=== PATIENT | female | born 1985 | race Caucasian/White ===

== ENCOUNTER 2017-01-14 00:19 | Emergency (ER) | payer MEDICAID ==
[~2017-01-14] VITALS: Ht 152.4 cm; Wt 55.0 kg
[2017-01-14 00:32] VITALS: BP 114/76; PULSE 102; RESP 16; TEMP 98.3; O2SAT 96
[2017-01-14 02:22] LABS: BACTERIA, URINE OCC /hpf; BLOOD, URINE SMALL (NEG); COMMENT (UR) CULTURE INDICATED; CULTURE IF INDICATED CULTURE INDICATED; GLUCOSE,URINE NEG (NEG); KETONE, URINE NEG (NEG); MUCUS URINE FEW /lpf (OCC); NITRITE,URINE POS (NEG); PH, URINE 5.5 (5.0-8.5); SQUAMOUS EPITHELIAL CELL URINE 1 /hpf (0-5); URINE COLOR BROWN (YELLW/STRAW)
--- NOTE | 2017-01-14 02:45 | PD ---
HPI Chief Complaint: Flank/Kidney Pain Time Seen by Provider: 02:27 Travel History International Travel<30 days: No Contact w/Intl Traveler<30days: No Traveled to known affect area: No History of Present Illness HPI 32-year-old female complains of right flank pain and dysuria. Patient states that the symptoms started 2-1/2 days ago. Patient denies any fever chills. Patient states the pain in cramping pain and sharp pain localized to the right flank area. Patient denies any pain radiation. Patient denies any vaginal discharge or bleeding. Patient denies any nausea vomiting diarrhea. Patient complains of dysuria. Patient has history kidney stone and recurrent UTI and pyelonephritis in the past. On a scale of 1-10 the pain is a 7. Patient has IUD in place. PFSH Past Medical History Medical History: Denies Significant Hx Tetanus Vaccination: < 5 Years Influenza Vaccination: No ?: Not LMP: IRREG : 2 Para: 2 Past Surgical History Appendectomy: Yes Social History Alcohol Use: Yes (2 XS WEEKLY) Tobacco Use: No Substance Use: No Allergies-Medications (Allergen,Severity, Reaction): Coded Allergies: No Known Allergies (Unverified , 01/14/17) Reported Meds & Prescriptions Reported Meds & Active Scripts Active No Active Prescriptions or Reported Medications Review of Systems General / Constitutional: No: Fever Eyes: No: Visual changes HENT: No: Headaches Cardiovascular: No: Chest Pain or Discomfort Respiratory: No: Shortness of Breath Gastrointestinal: No: Abdominal Pain Genitourinary: Positive: Dysuria Musculoskeletal: No: Pain Skin: No Rash Neurologic: No: Weakness Psychiatric: No: Depression Endocrine: No: Polydipsia Hematologic/Lymphatic: No: Easy Bruising Physical Exam Narrative GENERAL: Well-nourished, well-developed patient. SKIN: Warm and dry. HEAD: Normocephalic. EYES: No scleral icterus. No injection or drainage. NECK: Supple, trachea midline. No JVD or lymphadenopathy. CARDIOVASCULAR: Regular rate and rhythm without murmurs, gallops, or rubs. RESPIRATORY: Breath sounds equal bilaterally. No accessory muscle use. GASTROINTESTINAL: Abdomen soft, non-tender, nondistended. MUSCULOSKELETAL: No cyanosis, or edema. BACK: Patient had positive right CVA tenderness. Neurologic exam normal. Data Data Last Documented VS Vital Signs Date Time Temp Pulse Resp B/P Pulse Ox O2 Delivery O2 Flow Rate FiO2 01/14/17 00:32 98.3 102 16 114/76 96 Room Air Orders Urinalysis - C+S If Indicated (01/14/17 00:34) Ed Urine Pregnancytest Poc (01/14/17 00:34) Urine Culture (01/14/17 02:03) Ct Abd/Pel W/O Iv Contrast (01/14/17 02:32) Labs Laboratory Tests Test 01/14/17 02:03 Urine Color BROWN Urine Turbidity CLEAR Urine pH 5.5 Urine Specific [place] 1.005 Urine Protein NEG mg/dL Urine Glucose (UA) NEG mg/dL Urine Ketones NEG mg/dL Urine Occult Blood SMALL Urine Nitrite POS Urine Bilirubin NEG Urine Urobilinogen LESS THAN 2.0 MG/DL Urine Leukocyte Esterase LARGE Urine RBC 3 /hpf Urine WBC 49 /hpf Urine WBC Clumps RARE Urine Squamous Epithelial 1 /hpf Cells Urine Bacteria OCC /hpf Urine Mucus FEW /lpf Microscopic Urinalysis Comment CULTURE INDICATED MDM Medical Decision Making Medical Screen Exam Complete: Yes Emergency Medical Condition: Yes Interpretation(s) 2 45 AM. Urine test negative. UA positive with WBC and bacteria. 3:13 AM. Last Impressions Abdomen/Pelvis CT 01/14/17 0232 Signed Impressions: Service Date/Time: Saturday, January 14, 2017 02:42 - CONCLUSION: 1. 4 mm distal right ureteral stone 3 cm from the UVJ with mild obstruction. Johann Lee Jr., MD Differential Diagnosis Differential diagnosis including pyelonephritis, nephrolithiasis, UTI. Narrative Course 32-year-old female with right flank pain and dysuria. History of kidney stone and UTI and pyelonephritis. Diagnosis Primary Impression: Nephrolithiasis Additional Impression: UTI (urinary tract infection) Qualified Code: N30.00 - Acute cystitis without hematuria Patient Instructions: General Instructions Additional Instructions: Take medications as directed. Follow-up with urologist. Return if intractable pain, fever, persistent vomiting. Med/Other Pt SpecificInfo: Prescription(s) given Scripts Hydrocodone-Acetaminophen ([place])5-325 mg Tab1 Tab PO Q6H PRN (PAIN) #20 TAB Ref 0 Prov:Bacilio Alaniz MD 01/14/17 Ondansetron Odt (Zofran Odt)4 Mg Tab4 Mg SL Q6HR PRN (Nausea/Vomiting) #10 TAB Ref 0 Prov:Bacilio Alaniz MD 01/14/17 Tamsulosin (Flomax)0.4 Mg Cap0.4 Mg PO HS #10 CAP Ref 0 Prov:Bacilio Alaniz MD 01/14/17 Sulfamethoxazole-Trimethoprim (Bactrim DS)800-160 Mg Tab1 Tab PO BID #14 TAB Prov:Bacilio Alaniz MD 01/14/17 Disposition: 01 DISCHARGE HOME Condition: Stable Bacilio Alaniz MD Jan 14, 2017 02:44
--- NOTE | 2017-01-14 03:00 | RADRPT ---
EXAM DATE/TIME: 01/14/2017 02:42 [facility] COMPARISON: No previous studies available for comparison. INDICATIONS : Right flank pain for three days. ORAL CONTRAST: No oral contrast ingested. RADIATION DOSE: 4.97 CTDIvol (mGy) MEDICAL HISTORY : None SURGICAL HISTORY : Appendectomy. ENCOUNTER: Initial ACUITY: 1 day PAIN SCALE: 5/10 LOCATION: Right flank TECHNIQUE: Volumetric scanning of the abdomen and pelvis was performed. Using automated exposure control and ad justment of the mA and/or kV according to patient size, radiation dose was kept as low as reasonably achievable to obtain optimal diagnostic quality images. FINDINGS: LOWER LUNGS: The visualized lower lungs are clear. LIVER: Homogeneous density without lesion. There is no dilation of the biliary tree. No calcified gallston es. SPLEEN: Normal size without lesion. PANCREAS: Within normal limits. KIDNEYS: There is mild hydronephrosis and hydroureter on the right secondary to a 4 mm distal ureteral stone. The stone is 3 mm from the UVJ. 3 tiny nonobstructing stones are seen on the left. These measure appr oximately 1 mm respectively. A no perinephric stranding or fluid collections. ADRENAL GLANDS: Within normal limits. VASCULAR: There is no aortic aneurysm. BOWEL/MESENTERY: The stomach, small bowel, and colon demonstrate no acute abnormality. There is no free intraperitone al air or fluid. ABDOMINAL WALL: Within normal limits. RETROPERITONEUM: There is no lymphadenopathy. BLADDER: No wall thickening or mass. REPRODUCTIVE: Within normal limits. An IUD is observed. The uterus is anteverted. INGUINAL: There is no lymphadenopathy or hernia. MUSCULOSKELETAL: Within normal limits for patient age. CONCLUSION: 1. 4 mm distal right ureteral stone 3 cm from the UVJ with mild obstruction. Johann Lee Jr., MD on January 14, 2017 at 2:55 Board Certified Radiologist. This report was verified electronically.
[2017-01-14] MEDS ORDERED: NORC5TAB PO (03:20)
[2017-01-14] MEDS ORDERED: BACT800T5 PO (03:20)
[2017-01-14] MEDS ORDERED: ZOFR4TAB3 SL (03:20)
[2017-01-14] MEDS ORDERED: TAMS5CAP PO (03:20)
[2017-01-14] MEDS ORDERED: SULFAMETHOXAZOLE-TRIMETHOPRIM DS 800-160 MG TAB PO ONE (03:30)
[2017-01-14] MEDS ORDERED: KETOROLAC TROMETHAMINE 60 MG/2 ML (IM) VIAL IM ONE (03:30)
== END 2017-01-14 03:45 | disposition home or self-care (01) ==
LOC: NEPE 00:19
DX: N39.0 Urinary tract infection, site not specified (principal); N20.0 Calculus of kidney; Z87.442 Personal history of urinary calculi
CPT/HCPCS: 74176; 81001; 84703; 87086; 96372; 99284; J1885

== ENCOUNTER 2017-03-30 13:37 | Emergency (ER) | payer MEDICAID ==
[~2017-03-30] VITALS: Ht 152.4 cm; Wt 60.0 kg
[~2017-03-30 13:37] MED LIST: BACT800T5 PO; NORC5TAB PO; TAMS5CAP PO; ZOFR4TAB3 SL
[2017-03-30 13:41] VITALS: BP 111/66; PULSE 76; RESP 16; TEMP 98.3; O2SAT 99
[2017-03-30 14:02] LABS: BLOOD, URINE NEG (NEG); GLUCOSE,URINE NEG (NEG); KETONE, URINE NEG (NEG); NITRITE,URINE NEG (NEG)
[2017-03-30 14:06] LABS: METHOD OF COLLECTION CLEAN CATCH; URINE COLOR YELLOW (YELLW/STRAW)
[2017-03-30 14:10] LABS: COMMENT (UR) CULT NOT INDICATED; CULTURE IF INDICATED CULT NOT INDICATED; RBC, URINE 0-3 /hpf (0-3); WBC, URINE 0-2 /hpf (0-5)
[2017-03-30] MEDS ORDERED: METR-1 PO (14:34)
--- NOTE | 2017-03-30 14:34 | PD ---
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 She has a Mirena in place which has been present for 7 years. She was told to take it out after 5 years. She hasn't felt the string not too long ago. She has intermittent bleeding. She does not have periods. PFSH Past Medical History Medical History: Denies Significant Hx Hx Anticoagulant Therapy: No Diabetes: No Tetanus Vaccination: < 5 Years Influenza Vaccination: No ?: Not LMP: Spotting X's 4-5 days : 2 Para: 2 Dilation and Curettage (D&C): Yes Past Surgical History Appendectomy: Yes Social History Alcohol Use: Yes (Occ.) Tobacco Use: No Substance Use: Yes (Marijuana occ.) Allergies-Medications (Allergen,Severity, Reaction): Coded Allergies: No Known Allergies (Unverified , 03/30/17) Reported Meds & Prescriptions Reported Meds & Active Scripts Active No Active Prescriptions or Reported Medications Review of Systems General / Constitutional: No: Fever Cardiovascular: No: Chest Pain or Discomfort Respiratory: No: Cough, Shortness of Breath Genitourinary: Positive: Discharge, Vaginal Bleeding Musculoskeletal: No: Myalgias, Arthralgias Skin: No Rash Neurologic: No: Weakness Hematologic/Lymphatic: No: Easy Bruising Physical Exam Narrative GENERAL: Well-developed female SKIN: Focused skin assessment warm/dry. HEAD: Atraumatic. Normocephalic. EYES: Pupils equal and round. No scleral icterus. No injection or drainage. ENT: No nasal bleeding or discharge. Mucous membranes pink and moist. NECK: Trachea midline. No JVD. GASTROINTESTINAL: Abdomen soft, non-tender, nondistended. Hepatic and splenic margins not palpable. Pelvic: There is slight discharge. Initially the string could not be seen. The os was opened with splinter forceps and the string was found. The patient had requested that the Mirena be removed. I applied gentle traction to the string and the Mirena has come out intact MUSCULOSKELETAL: No obvious deformities. No clubbing. No cyanosis. No edema. NEUROLOGICAL: Awake and alert. No obvious cranial nerve deficits. Motor grossly within normal limits. Normal speech. PSYCHIATRIC: Appropriate mood and affect; insight and judgment normal. Data Data Last Documented VS Vital Signs Date Time Temp Pulse Resp B/P Pulse Ox O2 Delivery O2 Flow Rate FiO2 03/30/17 13:41 98.3 76 16 111/66 99 Orders Urinalysis - C+S If Indicated (03/30/17 13:51) Ed Urine Pregnancytest Poc (03/30/17 13:51) Gc And Chlamydia Pcr (03/30/17 14:07) Wet Prep Profile (03/30/17 14:07) Labs Laboratory Tests Test 03/30/17 03/30/17 14:00 14:10 Urine Collection Type CLEAN CATCH Urine Color YELLOW Urine Turbidity CLEAR Urine pH 8.0 Urine Specific [place] 1.012 Urine Protein NEG mg/dL Urine Glucose (UA) NEG mg/dL Urine Ketones NEG mg/dL Urine Occult Blood NEG Urine Nitrite NEG Urine Bilirubin NEG Urine Leukocyte Esterase NEG Urine RBC 0-3 /hpf Urine WBC 0-2 /hpf Microscopic Urinalysis Comment CULT NOT INDICATED Clue Cells (Wet Prep) PRESENT Vaginal Trichomonas (Wet Prep) NONE SEEN Vaginal Yeast (Wet Prep) NONE SEEN MDM Medical Decision Making Medical Screen Exam Complete: Yes Emergency Medical Condition: Yes Medical Record Reviewed: Yes Differential Diagnosis Differential includes cervicitis, vaginitis Narrative Course Urine is negative for infection. Wet prep shows clue cells. Diagnosis Primary Impression: Bacterial vaginosis Scripts Metronidazole (Flagyl)500 Mg Rad377 Mg PO TID 7 Days Ref 0 Prov:German Lawton MD 03/30/17 Disposition: 01 DISCHARGE HOME Condition: Stable German Lawton MD Mar 30, 2017 14:34
[2017-03-30 17:07] LABS: CHLAMYDIA PCR NOT DETECTED (NOT DETECT); NEISSERIA PCR NOT DETECTED (NOT DETECT)
== END 2017-03-30 14:45 | disposition home or self-care (01) ==
LOC: PHED 13:37
DX: N76.0 Acute vaginitis (principal); F12.90 Cannabis use, unspecified, uncomplicated
CPT/HCPCS: 81001; 84703; 87210; 87491; 87591; 99283

== ENCOUNTER 2017-04-03 06:00 | Inpatient (IN) | payer MEDICAID ==
[2017-04-03] VITALS (10 sets, daily range): BP systolic 97–112; BP diastolic 55–67; PULSE 67–113; RESP 15–18; TEMP 97.2–97.9; O2SAT 98–100
[~2017-04-03] VITALS: Ht 152.4 cm; Wt 57.0 kg
[~2017-04-03 06:00] MED LIST changes: -BACT800T5 PO; +METR-1 PO; -NORC5TAB PO; -TAMS5CAP PO; -ZOFR4TAB3 SL
[2017-04-03] MEDS ORDERED: antibiotic (06:22)
[2017-04-03] MEDS ORDERED: SODIUM CHLOR 0.9% 1000 ML INJ 1,000 ML IV SCH (06:26)
--- NOTE | 2017-04-03 06:27 | PD ---
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 Patient states that after her and her boyfriend had sex this morning she had fairly severe pain, she states the pain was so severe that it was doubling her over and she was feeling stars and very flushed. She states she's never had this pain before. She states recently she was being evaluated before bacterial vaginosis and was on Flagyl for that. Endorses mild nausea no vomiting no diarrhea no constipation. Has history of C- section in the past. PFSH Past Medical History Medical History: Denies Significant Hx Hx Anticoagulant Therapy: No Diabetes: No Diminished Hearing: No Tetanus Vaccination: Unknown Influenza Vaccination: No ?: Unknown : 2 Para: 2 Dilation and Curettage (D&C): Yes Past Surgical History Appendectomy: Yes Social History Alcohol Use: Yes (Occ.) Tobacco Use: No Substance Use: Yes (Marijuana occ.) Allergies-Medications (Allergen,Severity, Reaction): Coded Allergies: No Known Allergies (Unverified , 04/03/17) Reported Meds & Prescriptions Reported Meds & Active Scripts Active No Active Prescriptions or Reported Medications Review of Systems Except as stated in HPI: all other systems reviewed are Neg Physical Exam Narrative GENERAL: WD/WN appears very uncomfortable. SKIN: Warm and dry. HEAD: Atraumatic. Normocephalic. EYES: Pupils equal and round. No scleral icterus. No injection or drainage. ENT: No nasal bleeding or discharge. Mucous membranes pink and moist. NECK: Trachea midline. No JVD. CARDIOVASCULAR: Regular rate and rhythm. RESPIRATORY: No accessory muscle use. Clear to auscultation. Breath sounds equal bilaterally. GASTROINTESTINAL: Abdomen soft, moderately tender in the LLQ, nondistended. Hepatic and splenic margins not palpable. No rebound no percussive tenderness. : Normal cervix, no discharge. Tender with speculum insertion, tender on palpation of left adnexa. No bruising, no tears. MUSCULOSKELETAL: Extremities without clubbing, cyanosis, or edema. No obvious deformities. NEUROLOGICAL: Awake and alert. No obvious cranial nerve deficits. Motor grossly within normal limits. Five out of 5 muscle strength in the arms and legs. Normal speech. PSYCHIATRIC: Appropriate mood and affect; insight and judgment normal. Data Data Last Documented VS Vital Signs Date Time Temp Pulse Resp B/P Pulse Ox O2 Delivery O2 Flow Rate FiO2 04/03/17 07:20 97 18 108/55 99 Room Air 04/03/17 06:02 97.8 Orders Urinalysis - C+S If Indicated (04/03/17 06:07) Ed Urine Pregnancytest Poc (04/03/17 06:07) Complete Blood Count With Diff (04/03/17 06:26) Comprehensive Metabolic Panel (04/03/17:) Lipase (04/03/17:) Prothrombin Time / Inr (Pt) (04/03/17:) Act Partial Throm Time (Ptt) (04/03/17:26) Ct Abd/Pel W Iv Contrast(Rout) (04/03/17 06:26) Iv Access Insert/Monitor (04/03/17:) Ecg Monitoring (04/03/17:) Oximetry (04/03/17:26) Morphine Inj (Morphine Inj) (04/03/17 06:30) Ondansetron Inj (Zofran Inj) (04/03/17 06:30) Sodium Chlor 0.9% 1000 Ml Inj (Ns 1000 M (04/03/17 06:26) Sodium Chloride 0.9% Flush (Ns Flush) (04/03/17 06:30) Iohexol 350 Inj (Omnipaque 350 Inj) (04/03/17 07:50) Gc And Chlamydia Pcr (04/03/17 08:01) Wet Prep Profile (04/03/17 08:01) Piperacil-Tazo 4.5 Gm Premix (Zosyn 4.5 (04/03/17 08:30) Ceftriaxone Inj (Rocephin Inj) (04/03/17 08:30) Metronidazole 500 Mg Inj (Flagyl 500 Mg (04/03/17 08:30) Doxycycline (Vibramycin) (04/03/17 08:30) Sodium Chlor 0.9% 1000 Ml Inj (Ns 1000 M (04/03/17 08:30) Blood Culture (04/03/17 08:26) Lactic Acid (04/03/17 08:26) Us Pelvis Comp W Dop Transvag (04/03/17 ) Admit Order (Ed Use Only) (04/03/17 08:55) Labs Laboratory Tests Test 04/03/17 04/03/17 04/03/17 04/03/17 06:30 06:40 07:30 08:33 White Blood Count 18.7 TH/MM3 Red Blood Count 3.89 MIL/MM3 Hemoglobin 11.8 GM/DL Hematocrit 35.8 % Mean Corpuscular Volume 91.9 FL Mean Corpuscular Hemoglobin 30.2 PG Mean Corpuscular Hemoglobin 32.9 % Concent Red Cell Distribution Width 13.5 % Platelet Count 217 TH/MM3 Mean Platelet Volume 8.3 FL Neutrophils (%) (Auto) 82.4 % Lymphocytes (%) (Auto) 11.2 % Monocytes (%) (Auto) 5.1 % Eosinophils (%) (Auto) 1.1 % Basophils (%) (Auto) 0.2 % Neutrophils # (Auto) 15.4 TH/MM3 Lymphocytes # (Auto) 2.1 TH/MM3 Monocytes # (Auto) 1.0 TH/MM3 Eosinophils # (Auto) 0.2 TH/MM3 Basophils # (Auto) 0.0 TH/MM3 CBC Comment DIFF FINAL Differential Comment Prothrombin Time 10.7 SEC Prothromb Time International 1.0 RATIO Ratio Activated Partial 22.9 SEC Thromboplast Time Sodium Level 138 MEQ/L Potassium Level 3.5 MEQ/L Chloride Level 104 MEQ/L Carbon Dioxide Level 22.5 MEQ/L Anion Gap 12 MEQ/L Blood Urea Nitrogen 18 MG/DL Creatinine 1.22 MG/DL Estimat Glomerular Filtration 50 ML/MIN Rate Random Glucose 269 MG/DL Calcium Level 8.1 MG/DL Total Bilirubin 0.5 MG/DL Aspartate Amino Transf 12 U/L (AST/SGOT) Alanine Aminotransferase 22 U/L (ALT/SGPT) Alkaline Phosphatase 54 U/L Total Protein 6.3 GM/DL Albumin 3.7 GM/DL Lipase 150 U/L Urine Color YELLOW Urine Turbidity HAZY Urine pH 5.5 Urine Specific [place] 1.021 Urine Protein 30 mg/dL Urine Glucose (UA) 1000 mg/dL Urine Ketones TRACE mg/dL Urine Occult Blood NEG Urine Nitrite NEG Urine Bilirubin NEG Urine Urobilinogen LESS THAN 2.0 MG/DL Urine Leukocyte Esterase NEG Urine RBC 2 /hpf Urine WBC 4 /hpf Urine Squamous Epithelial 3 /hpf Cells Urine Transitional Epithelial <1 /hpf Cells Urine Bacteria RARE /hpf Urine Hyaline Casts 21 /lpf Urine Granular Casts 1 /lpf Urine Mucus FEW /lpf Microscopic Urinalysis Comment CULT NOT INDICATED Clue Cells (Wet Prep) NONE SEEN Vaginal Trichomonas (Wet Prep) NONE SEEN Vaginal Yeast (Wet Prep) NONE SEEN Chlamydia trachomatis DNA NOT DETECTED (PCR) Neisseria gonorrhoeae DNA NOT DETECTED (PCR) Lactic Acid Level 0.8 mmol/L MDM Medical Decision Making Medical Screen Exam Complete: Yes Emergency Medical Condition: Yes Differential Diagnosis Ovarian torsion, TOA, PID seems less likely, acute abdomen, diverticulitis, diverticulosis, , ectopic . Narrative Course Patient roomed emergency department, she was discussed with Dr. Barber who is the FUNDING COORDINATOR hospitalist today, I have high index suspicion for ovarian and adnexal pathology on this patient. CT and ultrasound are ordered. Discussed my concerns with Dr. Vo at 0700 shift change, she will follow-up the imaging studies and disposition the patient properly. Scripts No Active Prescriptions or Reported Meds Devin Alvarez MD Apr 03, 2017 06:27
[2017-04-03] MEDS ORDERED: MORPHINE SULFATE 4 MG/ML INJ IV PUSH ONE (06:30)
[2017-04-03] MEDS ORDERED: ONDANSETRON HCL 4 MG/2 ML VIAL IVP ONE (06:30)
[2017-04-03] MEDS ORDERED: SODIUM CHLORIDE 0.9% FLUSH 10 ML FLUSH IV FLUSH PRN ×2 (06:30→09:30)
[2017-04-03 06:50] LABS: AUTOMATED NEUTROPHIL # 15.4 TH/MM3 (1.8-7.7); BASOPHIL % 0.2 % (0.0-2.0); EOSINOPHIL # 0.2 TH/MM3 (0-0.4); EOSINOPHIL % 1.1 % (0.0-4.0); HEMATOCRIT 35.8 % (35.0-46.0); HEMO FLAGS DIFF FINAL; LYMPH % 11.2 % (9.0-44.0); LYMPHOCYTE # 2.1 TH/MM3 (1.0-4.8); MEAN CELL VOLUME 91.9 FL (80.0-100.0); MEAN CORPUSCULAR HEMOGLOBIN 30.2 PG (27.0-34.0); MEAN CORPUSCULAR HGB CONC 32.9 % (32.0-36.0); MONO % 5.1 % (0.0-8.0); NEUT % 82.4 % (16.0-70.0); PLATELET COUNT 217 TH/MM3 (150-450); RED BLOOD COUNT 3.89 MIL/MM3 (4.00-5.30); RED CELL DISTRIBUTION WIDTH 13.5 % (11.6-17.2); WHITE BLOOD COUNT 18.7 TH/MM3 (4.0-11.0)
[2017-04-03 07:01] LABS: ANION GAP 12 MEQ/L (5-15); AST (GOT) 12 U/L (15-37); BICARBONATE 22.5 MEQ/L (21.0-32.0); BLOOD UREA NITROGEN 18 MG/DL (7-18); CHLORIDE 104 MEQ/L (98-107); POTASSIUM 3.5 MEQ/L (3.5-5.1); SODIUM (NA) 138 MEQ/L (136-145)
[2017-04-03 07:05] LABS: APTT (PATIENT) 22.9 SEC (24.3-30.1); PROTHROMBIN TIME - PATIENT 10.7 SEC (9.8-11.6)
[2017-04-03 07:06] LABS: BACTERIA, URINE RARE /hpf; BLOOD, URINE NEG (NEG); GLUCOSE,URINE 1000 mg/dL (NEG); GRANULAR CAST, URINE 1 /lpf; HYALINE CAST, URINE 21 /lpf (RARE); KETONE, URINE TRACE mg/dL (NEG); MUCUS URINE FEW /lpf (OCC); NITRITE,URINE NEG (NEG); PH, URINE 5.5 (5.0-8.5); SQUAMOUS EPITHELIAL CELL URINE 3 /hpf (0-5); TRANSITIONAL EPI CELLS, URINE <1 /hpf; URINE COLOR YELLOW (YELLW/STRAW)
[2017-04-03 07:06] LABS: ALKALINE PHOSPHATASE 54 U/L (45-117); ALT (GPT) 22 U/L (10-53); GLOMERULAR FILTRATION RATE 50 ML/MIN (>89); TOTAL BILIRUBIN ADULT 0.5 MG/DL (0.2-1.0)
[2017-04-03 07:07] LABS: COMMENT (UR) CULT NOT INDICATED; CULTURE IF INDICATED CULT NOT INDICATED
[2017-04-03] MEDS ORDERED: IOHEXOL 350 MG/ML 10 ML VIAL (for RAD DIAG) IV ONE (07:50)
--- NOTE | 2017-04-03 08:10 | RADRPT ---
EXAM DATE/TIME: 04/03/2017 07:36 [facility] COMPARISON: No previous studies available for comparison. INDICATIONS : Severe abdomen pain. IV CONTRAST: 96 cc Omnipaque 350 (iohexol) IV ORAL CONTRAST: No oral contrast ingested. RADIATION DOSE: 9.96 CTDIvol (mGy) MEDICAL HISTORY : None SURGICAL HISTORY : Appendectomy. ENCOUNTER: Initial ACUITY: 1 day PAIN SCALE: 5/10 LOCATION: Bilateral abdomen. TECHNIQUE: Volumetric scanning of the abdomen and pelvis was performed. Using automated exposure control and ad justment of the mA and/or kV according to patient size, radiation dose was kept as low as reasonably achievable to obtain optimal diagnostic quality images. FINDINGS: The lung bases are clear. The liver, spleen, pancreas and adrenals are unremarkable. Moderate ascites is seen throughout the a bdomen. There is symmetrical renal function scattered small renal cysts. In the pelvis the uterus is prominent with a cystic mass in the left adnexa region. There are some vessels in the left adnexa. There is small amount of left flank extravasation. The fluid in the pel vis does not appear dense enough to be blood. CONCLUSION: Free peritoneal fluid in this patient with abdominal pain. This is most likely coming from adnexal p athology on the left. Pelvic ultrasound is in process. By report the beta is negative. Ketan Cruz MD FACR on April 03, 2017 at 8:00 Board Certified Radiologist. This report was verified electronically.
[2017-04-03] MEDS ORDERED: metroNIDAZOLE 500 MG INJ 100 ML IV ONE (08:30)
[2017-04-03] MEDS ORDERED: SODIUM CHLOR 0.9% 1000 ML INJ 1,000 ML IV ONE (08:30)
[2017-04-03] MEDS ORDERED: PIPERACIL-TAZO 4.5 GM PREMIX 100 ML IV ONE (08:30)
[2017-04-03] MEDS ORDERED: DOXYCYCLINE HYCLATE 100 MG CAP PO ONE (08:30)
[2017-04-03] MEDS ORDERED: cefTRIAXone 250 MG VIAL IM ONE (08:30)
--- NOTE | 2017-04-03 08:46 | PD ---
Physical Exam Date Seen by Provider: Apr 03, 2017 Time Seen by Provider: 08:44 Narrative 32-year-old female came to the emergency room with history of left adnexal pain. She was seen by the previous ER physician who had done a pelvic exam and his suspicion was very high for ovarian torsion. Patient was very tender in her left adnexa with positive CMT. White count is 18,000. CT scan of the abdomen and pelvis and pelvic ultrasound with Doppler was ordered. CT scan showed a lot of free fluid with stranding around the left ovary. The ultrasound was just read by the radiologist who called me to let me know that in spite of there being flow to both ovaries his suspicion is still high for ovarian torsion. The left ovary looks enlarged and inflamed. Previous ER physician spoke with the OB hospitalist who was waiting for these results. OB hospitalist was made aware of the high suspicion of ovarian torsion by the previous ER physician. I put a call back again. Patient has been covered with antibiotics by me. I've ordered a second liter of IV fluid bolus as well. Blood culture and lactic acid has been ordered as well. Awaiting for the OB hospitalist to call back at this point. Please refer to the previous ER physician's note for history and physical details. Data Data Last Documented VS Orders Urinalysis - C+S If Indicated (04/03/17 06:07) Ed Urine Pregnancytest Poc (04/03/17 06:07) Complete Blood Count With Diff (04/03/17 06:26) Comprehensive Metabolic Panel (04/03/17 06:26) Lipase (04/03/17 06:26) Prothrombin Time / Inr (Pt) (04/03/17 06:26) Act Partial Throm Time (Ptt) (04/03/17 06:26) Ct Abd/Pel W Iv Contrast(Rout) (04/03/17 06:26) Iv Access Insert/Monitor (04/03/17 06:26) Ecg Monitoring (04/03/17 06:26) Oximetry (04/03/17 06:26) Morphine Inj (Morphine Inj) (04/03/17 06:30) Ondansetron Inj (Zofran Inj) (04/03/17 06:30) Sodium Chlor 0.9% 1000 Ml Inj (Ns 1000 M (04/03/17 06:26) Sodium Chloride 0.9% Flush (Ns Flush) (04/03/17 06:30) Iohexol 350 Inj (Omnipaque 350 Inj) (04/03/17 07:50) Gc And Chlamydia Pcr (04/03/17 08:01) Wet Prep Profile (04/03/17 08:01) Piperacil-Tazo 4.5 Gm Premix (Zosyn 4.5 (04/03/17 08:30) Ceftriaxone Inj (Rocephin Inj) (04/03/17 08:30) Metronidazole 500 Mg Inj (Flagyl 500 Mg (04/03/17 08:30) Doxycycline (Vibramycin) (04/03/17 08:30) Sodium Chlor 0.9% 1000 Ml Inj (Ns 1000 M (04/03/17 08:30) Blood Culture (04/03/17 08:26) Lactic Acid (04/03/17 08:26) Us Pelvis Comp W Dop Transvag (04/03/17 ) Admit Order (Ed Use Only) (04/03/17 08:55) Labs MDM Supervised Visit with JAY: No Narrative Course I spoke with the OB hospitalist and she came down to see the patient. She's not suspecting ovarian torsion and said she would admit the patient for observation. I have informed the patient of the plan as well. Critical Care Narrative Aggregate critical care time was 30 minutes. Time to perform other separately billable procedures was not included in the critical care time. My time did not include minutes spent treating any other patients simultaneously or on activities that did not directly contribute to the patient's treatment. The services I provided to this patient were to treat and/or prevent clinically significant deterioration that could result in: Intra-abdominal free fluid, possible hemorrhagic cyst, fluid resuscitation I provided critical care services requiring my management, as noted below: Chart data review, documentation time, medication orders and management, vital sign assessments/reviewing monitor data, ordering and reviewing lab tests, ordering and interpreting/reviewing x-rays and diagnostic studies, care of the patient and discussion of the patient with the admitting physicians. Diagnosis Primary Impression: Intra-abdominal fluid collection Additional Impressions: Adnexal pain possible ruptured hemorrhagic cyst Admitting Information Admitting Physician Requests: Observation Scripts Doxycycline Hyclate 100 Mg [id number] Mg PO Q12HR #10 TAB Prov:Racquel Coburn MD R1 6/14/17 Ketorolac 10 Mg Tab10 Mg PO Q6HR PRN (PAIN) #12 TAB Ref 0 Prov:Racquel Coburn MD R1 04/05/17 Hydrocodone-Acetaminophen 5-325 mg Tab1 Tab PO Q4-6H PRN (PAIN 6-10) #20 TAB Prov:Racquel Coburn MD R1 04/05/17 Apurva Vo MD Apr 03, 2017 08:46 Basophils (%) (Auto) 0.2 % Neutrophils # (Auto) 15.4 TH/MM3 Lymphocytes # (Auto) 2.1 TH/MM3 Monocytes # (Auto) 1.0 TH/MM3 Eosinophils # (Auto) 0.2 TH/MM3 Basophils # (Auto) 0.0 TH/MM3 CBC Comment DIFF FINAL Differential Comment Prothrombin Time 10.7 SEC Prothromb Time International 1.0 RATIO Ratio Activated Partial 22.9 SEC Thromboplast Time Sodium Level 138 MEQ/L Potassium Level 3.5 MEQ/L Chloride Level 104 MEQ/L Carbon Dioxide Level 22.5 MEQ/L Anion Gap 12 MEQ/L Blood Urea Nitrogen 18 MG/DL Creatinine 1.22 MG/DL Estimat Glomerular Filtration 50 ML/MIN Rate Random Glucose 269 MG/DL Calcium Level 8.1 MG/DL Total Bilirubin 0.5 MG/DL Aspartate Amino Transf 12 U/L (AST/SGOT) Alanine Aminotransferase 22 U/L (ALT/SGPT) Alkaline Phosphatase 54 U/L Total Protein 6.3 GM/DL Albumin 3.7 GM/DL Lipase 150 U/L Urine Color YELLOW Urine Turbidity HAZY Urine pH 5.5 Urine Specific [place] 1.021 Urine Protein 30 mg/dL Urine Glucose (UA) 1000 mg/dL Urine Ketones TRACE mg/dL Urine Occult Blood NEG Urine Nitrite NEG Urine Bilirubin NEG Urine Urobilinogen LESS THAN 2.0 MG/DL Urine Leukocyte Esterase NEG Urine RBC 2 /hpf Urine WBC 4 /hpf Urine Squamous Epithelial 3 /hpf Cells Urine Transitional Epithelial <1 /hpf Cells Urine Bacteria RARE /hpf Urine Hyaline Casts 21 /lpf Urine Granular Casts 1 /lpf Urine Mucus FEW /lpf Microscopic Urinalysis Comment CULT NOT INDICATED Clue Cells (Wet Prep) NONE SEEN Vaginal Trichomonas (Wet Prep) NONE SEEN Vaginal Yeast (Wet Prep) NONE SEEN Chlamydia trachomatis DNA NOT DETECTED (PCR) Neisseria gonorrhoeae DNA NOT DETECTED (PCR) Lactic Acid Level 0.8 mmol/L MDM Supervised Visit with JAY: No Narrative Course 14 a.m. Scripts Doxycycline Hyclate 100 Mg [id number] Mg PO Q12HR #10 TAB Prov:Racquel Coburn MD R1 04/05/17 Ketorolac 10 Mg Tab10 Mg PO Q6HR PRN (PAIN) #12 TAB Ref 0 Prov:Racquel Coburn MD R1 04/05/17 Hydrocodone-Acetaminophen 5-325 mg Tab1 Tab PO Q4-6H PRN (PAIN 6-10) #20 TAB Prov:Racquel Coburn MD R1 04/05/17 Apurva Vo MD Apr 03, 2017 08:46
[2017-04-03] MEDS ORDERED: MORPHINE SULFATE 8 MG/ML INJ IV PUSH ONE (09:00)
[2017-04-03] MEDS ORDERED: ACETAMINOPHEN 325 MG TAB PO PRN (09:30)
[2017-04-03] MEDS ORDERED: LACTULOSE SYRUP 20 GM/30 ML CUP PO PRN (09:30)
[2017-04-03] MEDS ORDERED: NALOXONE HCL 0.4 MG/ML AMP IV PRN ×2 (09:30→10:00)
[2017-04-03] MEDS ORDERED: MAGNESIUM HYDROXIDE SUSP 30 ML CUP PO PRN (09:30)
[2017-04-03] MEDS ORDERED: ZOLPIDEM TARTRATE 5 MG TAB PO PRN (09:30)
[2017-04-03] MEDS ORDERED: BISACODYL 10 MG SUPP RECTAL PRN (09:30)
--- NOTE | 2017-04-03 09:41 | PD.CONS ---
HPI Chief Complaint Pelvic Pain Date Seen: Apr 03, 2017 (Kaitlin Loco MD R2) Travel History International Travel<30 Days: No Contact w/Intl Traveler<30Days: No Known Affected Area: No (Kaitlin Loco MD R2) History of Present Illness HPI Patient is a 32-year-old female with a past medical history significant for nephrolithiasis who presents today with pelvic pain. Pain started immediately following intercourse last night around midnight. The pain is described as bad menstrual cramps that are constant. The pain was so intense that she had an episode of emesis. It's also making her feel lightheaded. She has taken aspirin with some relief in the pain. She denies any associated vaginal bleeding or discharge. No fever or chills. She is unsure of her last menstrual period as she has been amenorrheic for the past 7 years. Of note, she recently had her Mirena removed which had been in place for about 7 years. At that time she was diagnosed with bacterial vaginosis, however she has not taken the antibiotics prescribed. She denies any new sexual partners. (Kaitlin Loco MD R2) History Past Medical History Narrative Medical Nephrolithiasis (Kaitlin Loco MD R2) Obstetric History Obstetric History s/p x 2 (Kaitlin Loco MD R2) Past Surgical History Narrative Surgical Appendectomy D&C for hemorrhage (Kaitlin Loco MD R2) Family History Family History: Negative (Kaitlin Loco MD) Social History Alcohol Use: Yes (occasional) Tobacco Use: No Substance Abuse: Yes (occasional marijuana use) (Kaitlin Loco MD R2) Allergies-Medications (Allergen,Severity, Reaction): Coded Allergies: No Known Allergies (Unverified , 04/03/17) Home Meds Active Scripts Doxycycline Hyclate 100 Mg [id number] Mg PO Q12HR #10 TAB Prov:Racquel Coburn MD 04/05/17 Ketorolac 10 Mg Tab10 Mg PO Q6HR PRN (PAIN) #12 TAB Ref 0 Prov:Racquel Coburn MD 04/05/17 Hydrocodone-Acetaminophen 5-325 mg Tab1 Tab PO Q4-6H PRN (PAIN 6-10) #20 TAB Prov:Racquel Coburn MD R1 04/05/17 Discontinued Scripts Metronidazole (Flagyl)500 Mg [id number] Mg PO TID 7 Days Ref 0 Prov:German Lawton MD 03/30/17 Hydrocodone-Acetaminophen (Aspen)5-325 mg Tab1 Tab PO Q6H PRN (PAIN) #20 TAB Ref 0 Prov:Bacilio Alaniz MD 01/14/17 Ondansetron Odt (Zofran Odt)4 Mg Tab4 Mg SL Q6HR PRN (Nausea/Vomiting) #10 TAB Ref 0 Prov:Bacilio Alaniz MD 01/14/17 Tamsulosin (Flomax)0.4 Mg Cap0.4 Mg PO HS #10 CAP Ref 0 Prov:Bacilio Alaniz MD 01/14/17 Sulfamethoxazole-Trimethoprim (Bactrim DS)800-160 Mg Tab1 Tab PO BID #14 TAB Prov:Bacilio Alaniz MD 01/14/17 Review of Systems Except as stated in HPI: all other systems reviewed are Neg General / Constitutional: No: Fever, Chills Eyes: Blurred Vision HENT: Lightheadedness, No: Headaches Cardiovascular: No: Chest Pain or Discomfort Respiratory: No: Short of Breath Gastrointestinal: Nausea, Vomiting, Abdominal Pain, Loss of Appetite Genitourinary: Dysuria, Pelvic Pain, No: Discharge, Vaginal Bleeding Musculoskeletal: No: Edema (Kaitlin Loco MD R2) Physical Exam Vital Signs Date Time Temp Pulse Resp B/P Pulse Ox O2 Delivery O2 Flow Rate FiO2 04/03/17 09:10 96 16 112/67 99 Room Air 04/03/17 07:20 97 18 108/55 99 Room Air 04/03/17 06:38 100 Room Air 04/03/17 06:19 18 04/03/17 06:02 97.8 113 16 108/55 99 Room Air Narrative GENERAL: Well-nourished, well-developed patient. SKIN: Warm and dry. HEAD: Normocephalic and atraumatic. EYES: No scleral icterus. No injection or drainage. ENT: No nasal drainage noted. Mucous membranes pink. Airway patent. NECK: Supple, trachea midline. No JVD. CARDIOVASCULAR: Regular rate and rhythm without murmurs, gallops, or rubs. RESPIRATORY: Breath sounds equal bilaterally. No accessory muscle use. ABDOMEN/GI: Abdomen soft, tender to palpation in LLQ, generalized epigastric tenderness, bowel sounds present, no rebound, no guarding GENITOURINARY: Normal cervix, no cervical motion tenderness, some tenderness in left adnexa, no masses. No suprapubic tenderness. EXTREMITIES: No cyanosis or edema. BACK: Nontender without obvious deformity. No CVA tenderness. NEUROLOGICAL: Awake and alert. Motor and sensory grossly within normal limits. Normal speech. (Kaitlin Loco MD R2) Data Data Vital Signs Reviewed: Yes Orders Urinalysis - C+S If Indicated (04/03/17 06:07) Ed Urine Pregnancytest Poc (04/03/17 06:07) Complete Blood Count With Diff (04/03/17 06:26) Comprehensive Metabolic Panel (04/03/17 06:) Lipase (04/03/17 06:26) Prothrombin Time / Inr (Pt) (04/03/17 06:26) Act Partial Throm Time (Ptt) (04/03/17 06:26) Ct Abd/Pel W Iv Contrast(Rout) (04/03/17 06:26) Iv Access Insert/Monitor (04/03/17 06:26) Ecg Monitoring (04/03/17 06:26) Oximetry (04/03/17 06:26) Morphine Inj (Morphine Inj) (04/03/17 06:30) Ondansetron Inj (Zofran Inj) (04/03/17 06:30) Sodium Chlor 0.9% 1000 Ml Inj (Ns 1000 M (04/03/17 06:26) Sodium Chloride 0.9% Flush (Ns Flush) (04/03/17 06:30) Iohexol 350 Inj (Omnipaque 350 Inj) (04/03/17 07:50) Gc And Chlamydia Pcr (04/03/17 08:01) Wet Prep Profile (04/03/17 08:01) Piperacil-Tazo 4.5 Gm Premix (Zosyn 4.5 (04/03/17 08:30) Ceftriaxone Inj (Rocephin Inj) (04/03/17 08:30) Metronidazole 500 Mg Inj (Flagyl 500 Mg (04/03/17 08:30) Doxycycline (Vibramycin) (04/03/17 08:30) Sodium Chlor 0.9% 1000 Ml Inj (Ns 1000 M (04/03/17 08:30) Blood Culture (04/03/17 08:26) Lactic Acid (04/03/17 08:26) Us Pelvis Comp W Dop Transvag (04/03/17 ) Admit Order (Ed Use Only) (04/03/17 08:55) Morphine Inj (Morphine Inj) (04/03/17 09:00) Physician Name Changes (04/03/17 ) Place In Observation (04/03/17 ) Code Status (04/03/17 09:24) Vital Signs (Adult) Q4H (04/03/17 09:24) Activity Oob Ad Stephani (04/03/17 09:24) Intake + Output SHELLY.QSHIFT (04/03/17 09:24) Diet Regular Basic (04/03/17 Breakfast) Sodium Chlor 0.9% 1000 Ml Inj (Ns 1000 M (04/03/17 09:24) Sodium Chloride 0.9% Flush (Ns Flush) (04/03/17 09:30) Sodium Chloride 0.9% Flush (Ns Flush) (04/03/17 21:00) Acetaminophen (Tylenol) (04/03/17 09:30) Ondansetron Inj (Zofran Inj) (04/03/17 09:30) Basic Metabolic Panel (Bmp) (04/04/17 06:00) Complete Blood Count With Diff (04/04/17 06:00) Zolpidem (Ambien) (04/03/17 09:30) Scd Bilateral/Knee High SHELLY.BID (04/03/17 09:24) Naloxone Inj (Narcan Inj) (04/03/17 09:30) Docusate Sodium-Senna (Ragini-Colace) (04/03/17 21:00) Magnesium Hydroxide Liq (Milk Of Magnesi (04/03/17 09:30) Sennosides (Senokot) (04/03/17 09:30) Bisacodyl Supp (Dulcolax Supp) (04/03/17 09:30) Lactulose Liq (Lactulose Liq) (04/03/17 09:30) Us Pelvis Comp W Transvaginal (04/04/17 ) Cefoxitin Inj (Mefoxin Inj) (04/03/17 09:30) Doxycycline (Vibratab) (04/03/17 09:30) Labs Laboratory Tests Test 04/03/17 04/03/17 04/03/17 04/03/17 06:30 06:40 07:30 08:33 White Blood Count 18.7 Red Blood Count 3.89 Hemoglobin 11.8 Hematocrit 35.8 Mean Corpuscular Volume 91.9 Mean Corpuscular Hemoglobin 30.2 Mean Corpuscular Hemoglobin 32.9 Concent Red Cell Distribution Width 13.5 Platelet Count 217 Mean Platelet Volume 8.3 Neutrophils (%) (Auto) 82.4 Lymphocytes (%) (Auto) 11.2 Monocytes (%) (Auto) 5.1 Eosinophils (%) (Auto) 1.1 Basophils (%) (Auto) 0.2 Neutrophils # (Auto) 15.4 Lymphocytes # (Auto) 2.1 Monocytes # (Auto) 1.0 Eosinophils # (Auto) 0.2 Basophils # (Auto) 0.0 CBC Comment DIFF FINAL Differential Comment Prothrombin Time 10.7 Prothromb Time International 1.0 Ratio Activated Partial 22.9 Thromboplast Time Sodium Level 138 Potassium Level 3.5 Chloride Level 104 Carbon Dioxide Level 22.5 Anion Gap 12 Blood Urea Nitrogen 18 Creatinine 1.22 Estimat Glomerular Filtration 50 Rate Random Glucose 269 Calcium Level 8.1 Total Bilirubin 0.5 Aspartate Amino Transf 12 (AST/SGOT) Alanine Aminotransferase 22 (ALT/SGPT) Alkaline Phosphatase 54 Total Protein 6.3 Albumin 3.7 Lipase 150 Urine Color YELLOW Urine Turbidity HAZY Urine pH 5.5 Urine Specific [place] 1.021 Urine Protein 30 Urine Glucose (UA) 1000 Urine Ketones TRACE Urine Occult Blood NEG Urine Nitrite NEG Urine Bilirubin NEG Urine Urobilinogen LESS THAN 2.0 Urine Leukocyte Esterase NEG Urine RBC 2 Urine WBC 4 Urine Squamous Epithelial 3 Cells Urine Transitional Epithelial <1 Cells Urine Bacteria RARE Urine Hyaline Casts 21 Urine Granular Casts 1 Urine Mucus FEW Microscopic Urinalysis Comment CULT NOT INDICATED Clue Cells (Wet Prep) NONE SEEN Vaginal Trichomonas (Wet Prep) NONE SEEN Vaginal Yeast (Wet Prep) NONE SEEN Lactic Acid Level 0.8 Date/Time Procedure Status Source Growth 04/03/17 08:35 Aerobic Blood Culture Received Blood Peripheral Pending 04/03/17 08:35 Anaerobic Blood Culture Received Blood Peripheral Pending (Kaitlin Loco MD R2) [facility] Medical Record Reviewed: Yes Narrative Course / MDM Plan 32-year-old female with past medical history significant for nephrolithiasis who presents with left lower quadrant pain and is admitted for observation of a probable ruptured ovarian cyst. Differential diagnosis includes PID, rupture of ovarian cyst, ovarian torsion. Given the close proximity of Mirena removal, PID is likely. Will treat with doxycycline 100mg PO Q12H and cefoxitin 2g IV Q6H. History is also consistent with probable rupture of ovarian cyst that is contributing to significant pain. Will admit for observation and obtain repeat pelvic ultrasound in AM for further evaluation. Ovarian torsion is lower on the differential at this time as patient appears comfortable, she has no rebound tenderness and there is flow on the ultrasound. sdw Dr. Feliz Admitting diagnosis: abdominal pain, free fluid in the abdomen, possible ovarian torsion (Kaitlin Loco MD R2) Scripts Doxycycline Hyclate 100 Mg [id number] Mg PO Q12HR #10 TAB Prov:Racquel Coburn MD R1 04/05/17 Ketorolac 10 Mg Tab10 Mg PO Q6HR PRN (PAIN) #12 TAB Ref 0 Prov:Racquel Coburn MD R1 04/05/17 Hydrocodone-Acetaminophen 5-325 mg Tab1 Tab PO Q4-6H PRN (PAIN 6-10) #20 TAB Prov:Racquel Coburn MD R1 04/05/17 Collaborating MD Comments Patient seen and examined with Dr Loco. Agree with management plan. Exam not c/w torsion although ruptured ovarian cyst, early PID is in the differential at this time. Will start PID antibiotic regiment and admit for observation overnight with repeat ultrasound. (Anne-Marie Feliz MD) Kaitlin Loco MD R2 Apr 03, 2017 09:41 Anne-Marie Feliz MD Apr 06, 2017 07:48
[2017-04-03] MEDS ORDERED: ACETAMINOPHEN/HYDROcodone 325 MG/5 MG TAB PO PRN (10:00)
[2017-04-03] MEDS: SODIUM CHLOR 0.9% 1000 ML INJ 1,000 ML IV SCH ×2 (10:13→21:02)
--- NOTE | 2017-04-03 11:06 | RADRPT ---
EXAM DATE/TIME: 04/03/2017 07:42 [facility] COMPARISON: No previous studies available for comparison. INDICATIONS : Pelvic pain. MEDICAL HISTORY : Pelvic pain SURGICAL HISTORY : Appendectomy. Dilation and curretage. ENCOUNTER: Initial ACUITY: 1 day PAIN SCORE: 10/10 LOCATION: Bilateral pelvis MEASUREMENTS: UTERUS: 8.0 x 6.1 x 4.3 cm ENDOMETRIAL STRIPE: 7 mm RIGHT OVARY: 3.2 x 2.3 x 2.4 cm LEFT OVARY: 6.5 x 3.2 x 3.9 cm FINDINGS: Patient has a CT that shows a large amount of free abdominal fluid. The right adnexa appears unremar kable by CT. The left adnexa shows multiple small vessels present with a cystic mass in the left adnexa region. By history the patient is beta negative. The uterus is unremarkable. Right ovary is poorly visualized and does not have any significant flow identifiable. The left ovary is enlarged containing 1.2 cm cystic area. There is left arterial flow present in the ovary. The mass in the adnexal region is of mixed echogenicity and appears to be associated with the ovary. CONCLUSION: 1.. Empty uterus. 2. Complex mass in the left adnexal region in this patient with free fluid. Part of this is ovary w ith normal arterial flow suggesting this is not torsion. This may just be a ruptured hemorrhagic cys t. Correlation is suggested. I have no prior studies for comparison. Correlation with serum beta w ould be of benefit as well. Ketan Cruz MD FACR on April 03, 2017 at 9:29 Board Certified Radiologist. This report was verified electronically.
[2017-04-03] MEDS: ceFOXitin INJ 2 GM in SODIUM CHLORIDE 0.9% INJ 100 ML IV SCH ×3 (11:17→22:48)
[2017-04-03 11:36] LABS: CHLAMYDIA PCR NOT DETECTED (NOT DETECT); NEISSERIA PCR NOT DETECTED (NOT DETECT)
[2017-04-03] MEDS: KETOROLAC TROMETHAMINE 30 MG/ML (IVP) VIAL IVP PRN (13:48)
[2017-04-03] MEDS: ACETAMINOPHEN/HYDROcodone 325 MG/10 MG TAB PO PRN ×2 (15:07→23:42)
[2017-04-03] MEDS: SODIUM CHLORIDE 0.9% FLUSH 10 ML FLUSH IV FLUSH SCH (21:01)
[2017-04-03] MEDS: DOCUSATE SODIUM 50 MG/SENNA 8.6 MG TAB PO SCH (21:01)
[2017-04-03] MEDS: DOXYCYCLINE HYCLATE 100 MG TAB PO SCH (21:01)
[2017-04-04] VITALS (8 sets, daily range): BP systolic 93–121; BP diastolic 54–67; PULSE 75–102; RESP 18–20; TEMP 96.9–98.2; O2SAT 97–99
[2017-04-04] MEDS: ONDANSETRON HCL 4 MG/2 ML VIAL IVP PRN ×3 (01:37→21:17)
[2017-04-04] MEDS: SODIUM CHLOR 0.9% 1000 ML INJ 1,000 ML IV SCH ×2 (05:24→12:31)
[2017-04-04] MEDS: ceFOXitin INJ 2 GM in SODIUM CHLORIDE 0.9% INJ 100 ML IV SCH ×4 (05:42→23:12)
--- NOTE | 2017-04-04 07:18 | HHI.PR ---
Subjective Remarks No acute issues overnight. Patient was able to rest comfortably. She continues to have LLQ pain that is well controlled with [place]. She states that the pain has improved since yesterday. She denies any chest pain, shortness of breath, fever, chills, nausea, vomiting, vaginal bleeding or discharge. She has difficulty sitting up and ambulating without abdominal pain. She is tolerating PO. Objective Vital Signs Date Time Temp Pulse Resp B/P Pulse Ox O2 Delivery O2 Flow Rate FiO2 04/04/17 04:53 97.3 75 18 93/54 99 04/04/17 00:42 18 04/04/17 00:41 97.1 102 18 113/62 97 04/03/17 21:04 97.9 67 18 97/56 100 04/03/17 20:00 73 04/03/17 16:00 97.2 75 18 105/55 98 04/03/17 12:45 97.7 98 18 99/58 98 04/03/17 12:23 78 17 104/60 99 Room Air 04/03/17 11:18 82 15 99/58 98 04/03/17 09:10 96 16 112/67 99 Room Air 04/03/17 07:20 97 18 108/55 99 Room Air I/O 04/03/17 04/03/17 04/03/17 04/04/17 04/04/17 04/04/17 07:00 15:00 23:00 07:00 15:00 23:00 Intake Total 1000 ml 480 ml 1844 ml Balance 1000 ml 480 ml 1844 ml Intake Oral 480 ml IV Total 1000 ml 1844 ml # Voids 3 Result Diagram: 04/03/17 0630 04/03/17 0630 Imaging Last Impressions Abdomen/Pelvis CT 04/03/17 0626 Signed Impressions: Service Date/Time: Monday, April 03, 2017 07:36 - CONCLUSION: Free peritoneal fluid in this patient with abdominal pain. This is most likely coming from adnexal pathology on the left. Pelvic ultrasound is in process. By report the beta is negative. Ketan Cruz MD FACR Abdomen/Pelvis/Transvag US 04/03/17 0000 Signed Impressions: Service Date/Time: Monday, April 03, 2017 07:42 - CONCLUSION: 1.. Empty uterus. 2. Complex mass in the left adnexal region in this patient with free fluid. Part of this is ovary with normal arterial flow suggesting this is not torsion. This may just be a ruptured hemorrhagic cyst. Correlation is suggested. I have no prior studies for comparison. Correlation with serum beta would be of benefit as well. Ketan Cruz MD FACR Other Results Laboratory Tests Test 04/03/17 04/03/17 07:30 08:33 Clue Cells (Wet Prep) NONE SEEN Vaginal Trichomonas (Wet Prep) NONE SEEN Vaginal Yeast (Wet Prep) NONE SEEN Chlamydia trachomatis DNA NOT DETECTED (PCR) Neisseria gonorrhoeae DNA NOT DETECTED (PCR) Lactic Acid Level 0.8 mmol/L Objective Remarks GENERAL: Well-nourished, well-developed female patient. SKIN: Warm and dry. HEAD: Normocephalic and atraumatic. EYES: No scleral icterus. No injection or drainage. ENT: No nasal drainage noted. Mucous membranes pink. Airway patent. NECK: Supple, trachea midline. No JVD. CARDIOVASCULAR: Regular rate and rhythm without murmurs, gallops, or rubs. RESPIRATORY: Breath sounds equal bilaterally. No accessory muscle use. ABDOMEN/GI: Abdomen soft, tender to palpation in LLQ, no rebound, no guarding EXTREMITIES: No cyanosis or edema. BACK: Nontender without obvious deformity. NEUROLOGICAL: Awake and alert. Motor and sensory grossly within normal limits. Normal speech. Assessment and Plan Problem List: (1) Ruptured ovarian cyst Status: Acute Assessment and Plan 32 year old female who presented with LLQ abdominal pain and was admitted for observation of probable ruptured ovarian cyst. 04/03 US significant for complex mass in the left adnexal region. Ovary with normal arterial flow. Likely a ruptured hemorrhagic cyst. GC and Chlamydia, wet prep negative Pain controlled with [place]. Patient comfortable on exam. Repeat pelvic US this AM. AM CBC/BMP pending. Anticipate discharge home today pending results of repeat US. bhumi Stevens Discussed Condition With bhumi Stevens and Dr. Raffi Coburn R1 Discharge Planning Anticipate discharge home today. Kaitlin Loco MD R2 Apr 04, 2017 07:18
[2017-04-04] MEDS: DOCUSATE SODIUM 50 MG/SENNA 8.6 MG TAB PO SCH ×2 (08:36→21:18)
[2017-04-04] MEDS: ACETAMINOPHEN/HYDROcodone 325 MG/10 MG TAB PO PRN ×4 (08:36→23:12)
[2017-04-04] MEDS: DOXYCYCLINE HYCLATE 100 MG TAB PO SCH ×2 (08:36→21:17)
[2017-04-04] MEDS: SODIUM CHLORIDE 0.9% FLUSH 10 ML FLUSH IV FLUSH SCH ×2 (08:37→12:18)
[2017-04-04 13:40] LABS: BASOPHIL % 0.4 % (0.0-2.0); EOSINOPHIL # 0.1 TH/MM3 (0-0.4); EOSINOPHIL % 1.5 % (0.0-4.0); HEMATOCRIT 24.6 % (35.0-46.0); HEMO FLAGS DIFF FINAL; LYMPH % 29.1 % (9.0-44.0); LYMPHOCYTE # 2.3 TH/MM3 (1.0-4.8); MEAN CELL VOLUME 90.5 FL (80.0-100.0); MEAN CORPUSCULAR HEMOGLOBIN 31.5 PG (27.0-34.0); MEAN CORPUSCULAR HGB CONC 34.8 % (32.0-36.0); PLATELET COUNT 170 TH/MM3 (150-450); RED BLOOD COUNT 2.72 MIL/MM3 (4.00-5.30); RED CELL DISTRIBUTION WIDTH 13.3 % (11.6-17.2); WHITE BLOOD COUNT 7.9 TH/MM3 (4.0-11.0)
--- NOTE | 2017-04-04 14:26 | RADRPT ---
EXAM DATE/TIME: 04/04/2017 09:29 [facility] COMPARISON: CT ABDOMEN & PELVIS W CONTRAST, April 03, 2017, 7:36. US PELVIS,COMP,W DOPLR, TRANS VAG, April 03 7, 7:42. INDICATIONS : Pelvic pain. MEDICAL HISTORY : Corrective lenses. SURGICAL HISTORY : Appendectomy. Dilation and curettage. ENCOUNTER: Subsequent ACUITY: 3 days PAIN SCORE: 8/10 LOCATION: Bilateral pelvis MEASUREMENTS: UTERUS: 11.7 x 6.5 x 3.3 cm ENDOMETRIAL STRIPE: 4 mm RIGHT OVARY: 3.6 x 2.9 x 1.7 cm LEFT OVARY: 3.7 x 3.9 x 3.1 cm FINDINGS: UTERUS: The myometrium has homogeneous echotexture without mass. RIGHT OVARY: Ovary contains no mass or significant cystic lesion.Blood flow to the ovary is intact. LEFT OVARY: Blood flow to the left ovary is intact. There is a 1.6 x 1.2 cm cyst within the substance of the right ovary. MISCELLANEOUS: There is extensive free fluid throughout the pelvis. CONCLUSION: 1. The exam demonstrates extensive free fluid throughout the pelvis. This was present on previous ult rasound of 04/03/17 as well. This is of uncertain etiology. 2. 1.6 x 1.2 cm cyst within the left ovary. 3. Blood flow to the ovaries is intact. 4. The uterus appears intact. No intrauterine gestation is identified. The endometrial stripe is with in normal limits. Correlation with a negative beta to exclude ectopic would be warranted Pato Cruz MD on April 04, 2017 at 14:20 Board Certified Radiologist. This report was verified electronically.
[2017-04-04 15:03] LABS: BICARBONATE 25.2 MEQ/L (21.0-32.0); POTASSIUM 3.4 MEQ/L (3.5-5.1)
[2017-04-04 16:44] LABS: BETA HCG QUANT LESS THAN 1 MIU/ML (0-5)
[2017-04-04] MEDS: SENNOSIDES 8.6 MG TAB PO PRN (17:09)
[2017-04-05 00:32] VITALS: BP 98/55; PULSE 72; RESP 16; TEMP 96.5; O2SAT 99
[2017-04-05 04:00] VITALS: BP 90/51; PULSE 65; RESP 18; TEMP 97; O2SAT 99
[2017-04-05] MEDS: ACETAMINOPHEN/HYDROcodone 325 MG/10 MG TAB PO PRN ×3 (04:30→13:51)
[2017-04-05] MEDS: ONDANSETRON HCL 4 MG/2 ML VIAL IVP PRN ×2 (04:30→08:41)
[2017-04-05] MEDS: ceFOXitin INJ 2 GM in SODIUM CHLORIDE 0.9% INJ 100 ML IV SCH ×2 (04:31→11:20)
[2017-04-05 04:34] VITALS: PULSE 80
[2017-04-05 08:04] LABS: HEMATOCRIT 26.7 % (35.0-46.0); MEAN CELL VOLUME 91.3 FL (80.0-100.0); MEAN CORPUSCULAR HEMOGLOBIN 31.4 PG (27.0-34.0); MEAN CORPUSCULAR HGB CONC 34.4 % (32.0-36.0); PLATELET COUNT 158 TH/MM3 (150-450); RED BLOOD COUNT 2.93 MIL/MM3 (4.00-5.30); RED CELL DISTRIBUTION WIDTH 13.1 % (11.6-17.2); REVIEW FLAG FINAL; WHITE BLOOD COUNT 6.8 TH/MM3 (4.0-11.0)
--- NOTE | 2017-04-05 08:21 | HHI.DCPOC ---
Discharge Care Plan Diagnosis: (1) Ruptured ovarian cyst Report Symptoms to Your Doctor -Temperature above 100.5 degrees -Redness, of incision or excessive or foul smelling drainage -Unusual pain or calf pain -Increased vaginal bleeding -Painful or difficulty urinating -Feelings of extreme sadness or anxiety after 2 weeks Goals to Promote Your Health * To prevent worsening of your condition and complications * To maintain your health at the optimal level Directions to Meet Your Goals Take your medications as prescribed Follow your dietary instruction Follow activity as directed Ensure plenty of rest for recovery Drink fluids for hydration Keep your appointments as scheduled Take your immunizations and boosters as scheduled If your symptoms worsen call your PCP, if no PCP go to Urgent Care Center or Emergency Room Smoking is Dangerous to Your Health. Avoid second hand smoke Call the 24-hour crisis hotline for domestic abuse at Racquel Coburn MD R1 Apr 05, 2017 08:21
[2017-04-05 08:29] VITALS: BP 111/72; PULSE 70; RESP 18; TEMP 97.8; O2SAT 97
[2017-04-05] MEDS: KETOROLAC TROMETHAMINE 30 MG/ML (IVP) VIAL IVP PRN (08:41)
[2017-04-05] MEDS: DOXYCYCLINE HYCLATE 100 MG TAB PO SCH (08:41)
[2017-04-05] MEDS: DOCUSATE SODIUM 50 MG/SENNA 8.6 MG TAB PO SCH (08:42)
[2017-04-05] MEDS: SODIUM CHLORIDE 0.9% FLUSH 10 ML FLUSH IV FLUSH SCH (08:46)
--- NOTE | 2017-04-05 09:13 | HHI.PR ---
Subjective Remarks Patient seen at the bedside. Resting comfortably. Reports pain improved. Denies N/V. Objective Vital Signs Date Time Temp Pulse Resp B/P Pulse Ox O2 Delivery O2 Flow Rate FiO2 04/05/17 08:29 97.8 70 18 111/72 97 04/05/17 05:30 18 04/05/17 04:34 80 04/05/17 04:00 97.0 65 18 90/51 99 04/05/17 00:32 96.5 72 16 98/55 99 04/04/17 22:39 78 04/04/17 20:25 97.4 97 18 121/61 98 04/04/17 16:00 96.9 90 20 108/60 98 04/04/17 12:00 98.2 92 20 113/61 98 I/O 04/04/17 04/04/17 04/04/17 04/05/17 04/05/17 04/05/17 07:00 15:00 23:00 07:00 15:00 23:00 Intake Total 1844 ml 846 ml 828 ml 500 ml Output Total 550 ml 620 ml Balance 1844 ml 846 ml 278 ml -120 ml Intake Oral 480 ml 500 ml 500 ml IV Total 1844 ml 366 ml 328 ml Output Urine Total 550 ml 620 ml # Voids 3 # Bowel Movements 0 0 Result Diagram: 04/05/17 0740 04/04/17 1257 Objective Remarks GENERAL: Well-nourished, well-developed patient. SKIN: Warm and dry. HEAD: Normocephalic and atraumatic. EYES: No scleral icterus. No injection or drainage. ENT: No nasal drainage noted. Mucous membranes pink. Airway patent. NECK: Supple, trachea midline. No JVD. CARDIOVASCULAR: Regular rate and rhythm without murmurs, gallops, or rubs. RESPIRATORY: Breath sounds equal bilaterally. No accessory muscle use. BREASTS: Bilateral exam showed no masses , no retractions, no nipple discharge. ABDOMEN/GI: Abdomen soft, non-tender, bowel sounds present, no rebound, no guarding EXTREMITIES: No cyanosis or edema. BACK: Nontender without obvious deformity. No CVA tenderness. NEUROLOGICAL: Awake and alert. Motor and sensory grossly within normal limits. Five out of 5 muscle strength in all muscle groups. Normal speech. Assessment and Plan Assessment and Plan admitted for ruptured cyst/PID antibiotics D#2. H/H stable. Continue pain control and antibiotics. US findings reviewed. Fidelia Hahn MD Apr 05, 2017 09:13
[2017-04-05] MEDS ORDERED: HYDR-3516 PO (10:20)
[2017-04-05] MEDS ORDERED: KETO10 PO (10:20)
[2017-04-05] MEDS ORDERED: DOXY100T PO (11:14)
[2017-04-05] MEDS: SENNOSIDES 8.6 MG TAB PO PRN (11:20)
[2017-04-05 12:00] VITALS: BP 117/70; PULSE 79; RESP 19; TEMP 97.4; O2SAT 96
== END 2017-04-05 14:51 | disposition home or self-care (01) | DRG 761 ==
LOC: NEPC 06:00 → NEDA 08:57 → HOCB 12:40
PROVIDERS: ADMIT Obstetrics & Gynecology Obstetrics; ATTEND Obstetrics & Gynecology Obstetrics
DX: N83.202 Unspecified ovarian cyst, left side (principal); F12.90 Cannabis use, unspecified, uncomplicated; N73.9 Female pelvic inflammatory disease, unspecified; N76.0 Acute vaginitis
CPT/HCPCS: 74177; 76830; 76856; 80048; 80053; 81001; 83605; 83690; 84702; 84703; 85025; 85027; 85610; 85730; 87040; 87210; 87491; 87591; 93975; 96361; 96365; 96375; 96376; G0378; J0694; J0696; J1885; J2270; J2405; J2543; J7030; Q9967

== ENCOUNTER 2017-04-10 11:21 | Emergency (ER) | payer MEDICAID ==
[~2017-04-10] VITALS: Ht 152.4 cm; Wt 53.0 kg
[~2017-04-10 11:21] MED LIST changes: +DOXY100T PO; +HYDR-3516 PO; +KETO10 PO; -METR-1 PO
[2017-04-10 11:23] VITALS: BP 140/86; PULSE 81; RESP 16; TEMP 98.2; O2SAT 99
[2017-04-10 13:00] VITALS: BP 138/81; PULSE 78; RESP 17; TEMP 97.7; O2SAT 99
[2017-04-10 14:14] LABS: AUTOMATED NEUTROPHIL # 7.5 TH/MM3 (1.8-7.7); BASOPHIL % 0.4 % (0.0-2.0); EOSINOPHIL # 0.3 TH/MM3 (0-0.4); EOSINOPHIL % 2.9 % (0.0-4.0); HEMATOCRIT 32.5 % (35.0-46.0); HEMO FLAGS DIFF FINAL; LYMPH % 19.8 % (9.0-44.0); LYMPHOCYTE # 2.1 TH/MM3 (1.0-4.8); MEAN CELL VOLUME 90.7 FL (80.0-100.0); MEAN CORPUSCULAR HEMOGLOBIN 31.3 PG (27.0-34.0); MEAN CORPUSCULAR HGB CONC 34.5 % (32.0-36.0); NEUT % 71.9 % (16.0-70.0); PLATELET COUNT 272 TH/MM3 (150-450); RED BLOOD COUNT 3.59 MIL/MM3 (4.00-5.30); RED CELL DISTRIBUTION WIDTH 13.8 % (11.6-17.2); WHITE BLOOD COUNT 10.4 TH/MM3 (4.0-11.0)
--- NOTE | 2017-04-10 14:24 | PD ---
HPI Chief Complaint: Pain: Acute or Chronic Time Seen by Provider: 13:16 Travel History International Travel<30 days: No Contact w/Intl Traveler<30days: No Traveled to known affect area: No History of Present Illness HPI The patient's 32 years old. She arrives complaining of pelvic pain for about 5 days. She reports a crampy pain in the abdomen. She vomited a few times yesterday. She's had nausea since then. Diarrhea on occasion is reported. She reports a white burning vaginal discharge. She also reports vaginal spotting. Last menstruation was a few months ago and the patient does not remember specifically when it was. She reports usage of a Mirena device. No fever. PFSH Past Medical History Hx Anticoagulant Therapy: No Autoimmune Disease: No Cancer: No Cardiovascular Problems: No Diabetes: No Diminished Hearing: No Endocrine: No Genitourinary: Yes Immune Disorder: No Musculoskeletal: No Neurologic: No Psychiatric: No Reproductive: No Respiratory: No Tetanus Vaccination: < 5 Years Influenza Vaccination: No ?: Not : 2 Para: 2 Dilation and Curettage (D&C): Yes Past Surgical History Abdominal Surgery: Yes (appendectomy) AICD: No Appendectomy: Yes Arteriovenous Shunt: No Cardiac Surgery: No Ear Surgery: No Endocrine Surgery: No Eye Surgery: No Genitourinary Surgery: No Gynecologic Surgery: Yes (d &C) Insulin Pump: No Joint Replacement: No Oral Surgery: No Pacemaker: No Thoracic Surgery: No Other Surgery: Yes Social History Alcohol Use: Yes (occasional) Tobacco Use: No Substance Use: No (pt denies) Allergies-Medications (Allergen,Severity, Reaction): Coded Allergies: No Known Allergies (Unverified , 04/10/17) Reported Meds & Prescriptions Reported Meds & Active Scripts Active Hydrocodone-Acetaminophen 5-325 mg Tab 1 Tab PO Q4-6H PRN Bactrim DS (Sulfamethoxazole-Trimethoprim) 800-160 Mg Tab 1 Tab PO BID Doxycycline Hyclate 100 Mg Tab 100 Mg PO Q12HR Ketorolac (Ketorolac Tromethamine) 10 Mg Tab 10 Mg PO Q6HR PRN Review of Systems Except as stated in HPI: all other systems reviewed are Neg Physical Exam Narrative GENERAL: Well-nourished well-developed 32-year-old female pleasant no acute distress GENITOURINARY: External genitalia normal. No adnexal mass or tenderness. Positive CMT. SKIN: Warm and dry. HEAD: Atraumatic. Normocephalic. EYES: Pupils equal and round. No scleral icterus. No injection or drainage. ENT: No nasal bleeding or discharge. Mucous membranes pink and moist. NECK: Trachea midline. No JVD. CARDIOVASCULAR: Regular rate and rhythm. RESPIRATORY: No accessory muscle use. Clear to auscultation. Breath sounds equal bilaterally. GASTROINTESTINAL: Abdomen soft, non-tender, nondistended. Hepatic and splenic margins not palpable. MUSCULOSKELETAL: Extremities without clubbing, cyanosis, or edema. No obvious deformities. NEUROLOGICAL: Awake and alert. No obvious cranial nerve deficits. Motor grossly within normal limits. Five out of 5 muscle strength in the arms and legs. Normal speech. PSYCHIATRIC: Appropriate mood and affect; insight and judgment normal. Data Data Last Documented VS Vital Signs Date Time Temp Pulse Resp B/P Pulse Ox O2 Delivery O2 Flow Rate FiO2 04/10/17 18:14 17 04/10/17 13:00 97.7 78 138/81 99 Room Air vital signs reviewed Orders Complete Blood Count With Diff (04/10/17 13:30) Gc And Chlamydia Pcr (04/10/17 13:30) Wet Prep Profile (04/10/17 13:30) Urinalysis - C+S If Indicated (04/10/17 13:30) Ed Urine Pregnancytest Poc (04/10/17 13:30) Urine Culture (04/10/17 14:00) Azithromycin Powd Pack (Zithromax Powd P (04/10/17 15:30) Ceftriaxone Inj (Rocephin Inj) (04/10/17 15:30) Lidocaine 1% Inj (50 Ml) (Xylocaine 1% I (04/10/17 15:30) Ibuprofen (Motrin) (04/10/17 15:45) Acetamin-Hydrocod 325-5 Mg (Dixon 5-325 (04/10/17 17:15) Us Pelvis Comp W Transvaginal (04/10/17 ) Labs Laboratory Tests Test 04/10/17 04/10/17 13:41 14:00 White Blood Count 10.4 TH/MM3 Red Blood Count 3.59 MIL/MM3 Hemoglobin 11.2 GM/DL Hematocrit 32.5 % Mean Corpuscular Volume 90.7 FL Mean Corpuscular Hemoglobin 31.3 PG Mean Corpuscular Hemoglobin 34.5 % Concent Red Cell Distribution Width 13.8 % Platelet Count 272 TH/MM3 Mean Platelet Volume 8.1 FL Neutrophils (%) (Auto) 71.9 % Lymphocytes (%) (Auto) 19.8 % Monocytes (%) (Auto) 5.0 % Eosinophils (%) (Auto) 2.9 % Basophils (%) (Auto) 0.4 % Neutrophils # (Auto) 7.5 TH/MM3 Lymphocytes # (Auto) 2.1 TH/MM3 Monocytes # (Auto) 0.5 TH/MM3 Eosinophils # (Auto) 0.3 TH/MM3 Basophils # (Auto) 0.0 TH/MM3 CBC Comment DIFF FINAL Differential Comment Clue Cells (Wet Prep) NONE SEEN Vaginal Trichomonas (Wet Prep) NONE SEEN Vaginal Yeast (Wet Prep) NONE SEEN Chlamydia trachomatis DNA NOT DETECTED (PCR) Neisseria gonorrhoeae DNA NOT DETECTED (PCR) Urine Color DARK-YELLOW Urine Turbidity CLOUDY Urine pH 6.0 Urine Specific [place] 1.029 Urine Protein 100 mg/dL Urine Glucose (UA) TRACE mg/dL Urine Ketones NEG mg/dL Urine Occult Blood NEG Urine Nitrite NEG Urine Bilirubin NEG Urine Urobilinogen 2.0 MG/DL Urine Leukocyte Esterase NEG Urine RBC 2 /hpf Urine WBC 11 /hpf Urine Squamous Epithelial 33 /hpf Cells Urine Bacteria MANY /hpf Urine Hyaline Casts 47 /lpf Urine Mucus MANY /lpf Microscopic Urinalysis Comment CULTURE INDICATED MDM Medical Decision Making Medical Screen Exam Complete: Yes Emergency Medical Condition: Yes Medical Record Reviewed: Yes Differential Diagnosis IUP, UTI, ectopic , ov torsion, appendicitis, TOA, cervicitis, BV, Trichomoniasis, ov cyst, hernia, mittelschmerz, pain from menstruation Narrative Course CBC & BMP Diagram 04/10/17 13:41 Last 24 hours Impressions Pelvis Ultrasound 04/10/17 0000 Signed Impressions: Service Date/Time: Monday, April 10, 2017 16:20 - CONCLUSION: 1. There is a complex fluid in the pelvis that is of uncertain etiology. The appearance suggests that the fluid may be complicated by hemorrhage or infection. 2. The uterus and ovaries demonstrate no significant abnormality. Pieter Mcclain MD Case d/w on-call chief quality officer who is familiar with the patient. 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 Continue doxycycline. Reassessment at 644pm the patient is resting comfortably and feels better, is alert and in no distress. The patients results and examination findings were discussed. The repeat examination is unremarkable and benign. The history, exam , diagnostic testing, and current condition do not suggest any significant pathology to warrant further testing, continued ED treatment, admission, or surgical evaluation at this point. The vital signs have been stable. The patient does not have uncontrollable pain, intractable vomiting, or other significant symptoms. The patient's condition is stable and appropriate for discharge. The patient will pursue further outpatient evaluation with a primary care physician or other designated or consulting physician as indicated in the discharge instructions. The patient expressed understanding and was agreeable with this plan. Diagnosis Primary Impression: Pelvic pain in female Additional Impressions: Cervicitis Cystitis Referrals: Pieter Martinez MD 2 days Additional Instructions: You have a choice when it comes to health care, and we are glad that you chose [facility]. Hopefully, we have met your expectations on today's visit. You are welcome to return to [facility] at any time, as we are committed to meeting the health care needs of our community. Med/Other Pt SpecificInfo: Prescription(s) given Scripts Hydrocodone-Acetaminophen 5-325 mg Tab1 Tab PO Q4-6H PRN (PAIN 6-10) #12 TAB Prov:Pato Perez MD 04/10/17 Sulfamethoxazole-Trimethoprim (Bactrim DS)800-160 Mg Tab1 Tab PO BID #6 TAB Ref 0 Prov:Pato Perez MD 04/10/17 Disposition: 01 DISCHARGE HOME Condition: Stable Pato Perez MD Apr 10, 2017 14:24
[2017-04-10 14:52] LABS: BACTERIA, URINE MANY /hpf; BLOOD, URINE NEG (NEG); COMMENT (UR) CULTURE INDICATED; CULTURE IF INDICATED CULTURE INDICATED; GLUCOSE,URINE TRACE mg/dL (NEG); HYALINE CAST, URINE 47 /lpf (RARE); KETONE, URINE NEG (NEG); MUCUS URINE MANY /lpf (OCC); NITRITE,URINE NEG (NEG); SQUAMOUS EPITHELIAL CELL URINE 33 /hpf (0-5); URINE COLOR DARK-YELLOW (YELLW/STRAW)
[2017-04-10] MEDS ORDERED: BACT800T5 PO (15:28)
[2017-04-10] MEDS ORDERED: AZITHROMYCIN PWD FOR SUSP 1 GM PACKET PO ONE (15:30)
[2017-04-10] MEDS ORDERED: LIDOCAINE HCL 1% 50 ML VIAL IM ONE (15:30)
[2017-04-10] MEDS ORDERED: cefTRIAXone 250 MG VIAL IM ONE (15:30)
[2017-04-10] MEDS ORDERED: IBUPROFEN 600 MG TAB PO ONE (15:45)
[2017-04-10 16:56] LABS: CHLAMYDIA PCR NOT DETECTED (NOT DETECT); NEISSERIA PCR NOT DETECTED (NOT DETECT)
[2017-04-10] MEDS ORDERED: ACETAMINOPHEN/HYDROcodone 325 MG/5 MG TAB PO ONE (17:15)
[2017-04-10 18:14] VITALS: RESP 17
--- NOTE | 2017-04-10 18:14 | RADRPT ---
EXAM DATE/TIME: 04/10/2017 16:20 [facility] COMPARISON: US PELVIS,COMP,W DOPPLER, April 04, 2017, 9:29. INDICATIONS : Pelvic pain. MEDICAL HISTORY : . SURGICAL HISTORY : Appendectomy. Dilation and curettage. ENCOUNTER: [facility] ACUITY: 1 week PAIN SCORE: 6/10 LOCATION: Bilateral pelvis MEASUREMENTS: UTERUS: 8.7 x 5.8 x 4.1 cm ENDOMETRIAL STRIPE: 5 mm RIGHT OVARY: 4.4 x 3.0 x 2.4 cm LEFT OVARY: 5.1 x 3.5 x 2.3 cm FINDINGS: UTERUS: The myometrium has homogeneous echotexture without mass. RIGHT OVARY: Ovary contains no mass or significant cystic lesion. Follicles are present. Blood flow is documented . LEFT OVARY: Ovary contains no mass or significant cystic lesion. Follicles are present. Blood flow is documented . MISCELLANEOUS: There is a small volume of complex free fluid in the posterior cul-de-sac and adjacent to the ovaries . Overall volume is decreased from the prior study but the fluid appears more complex. CONCLUSION: 1. There is a complex fluid in the pelvis that is of uncertain etiology. The appearance suggests that the fluid may be complicated by hemorrhage or infection. 2. The uterus and ovaries demonstrate no significant abnormality. Pieter Mcclain MD on April 10, 2017 at 18:09 Board Certified Radiologist. This report was verified electronically.
[2017-04-10] MEDS ORDERED: HYDR-3516 PO (18:24)
[2017-04-10 18:55] VITALS: BP 130/77; TEMP 97.8
== END 2017-04-10 19:00 | disposition home or self-care (01) ==
LOC: NEPE 11:21
DX: R10.2 Pelvic and perineal pain (principal); N30.90 Cystitis, unspecified without hematuria; N72 Inflammatory disease of cervix uteri; B95.1 Streptococcus, group B, as the cause of diseases classified elsewhere
CPT/HCPCS: 76830; 76856; 81001; 84703; 85025; 87086; 87210; 87491; 87591; 96372; 99284; J0696